=== PATIENT | male | born 1980 | race Caucasian/White ===

== ENCOUNTER 2016-09-11 07:17 | Emergency (ER) | payer OTHER ==
[~2016-09-11 07:17] MED LIST: LORATADINE10 MG PO; VISTARIL25 MG PO
== END 2016-09-11 11:42 ==
LOC: ER1 07:17
DX: S02.2XXB Fracture of nasal bones, initial encounter for open fracture (principal); S01.81XA Laceration without foreign body of other part of head, initial encounter; I10 Essential (primary) hypertension; Z88.6 Allergy status to analgesic agent; F17.200 Nicotine dependence, unspecified, uncomplicated; Y04.0XXA Assault by unarmed brawl or fight, initial encounter; Y93.89 Activity, other specified; Y92.89 Other specified places as the place of occurrence of the external cause; Z79.899 Other long term (current) drug therapy
CPT/HCPCS: 12013; 70450; 70486; 99283

== ENCOUNTER 2020-09-27 09:46 | Emergency (ER) | payer OTHER ==
[2020-09-27 11:38] LABS: HEMOGLOBIN 14.7 gm/dl (14.0-17.5); RED BLOOD COUNT 4.47 M/UL (4.20-5.50); WHITE BLOOD COUNT 22.1 K/UL (4.5-11.0)
[2020-09-27 12:04] LABS: BUN/CREATININE RATIO 24 (0-10)
== END 2020-09-27 20:55 | disposition short-term general hospital (02) ==
LOC: ER1 09:46
PROVIDERS: Nurse Practitioner
DX: K85.90 Acute pancreatitis without necrosis or infection, unspecified (principal); I82.890 Acute embolism and thrombosis of other specified veins; I10 Essential (primary) hypertension; F17.210 Nicotine dependence, cigarettes, uncomplicated; Z20.822 Contact with and (suspected) exposure to COVID-19; Z90.49 Acquired absence of other specified parts of digestive tract
CPT/HCPCS: 80053; 80307; 81001; 83605; 83690; 85025; 93005; 96372; 96374; 96375; 96376; 99285; G0480; J0500; J1170; J1200; J2405; J2765; J7030; Q9967; U0002

== ENCOUNTER 2020-11-25 15:48 | Emergency (ER) | payer OTHER ==
[2020-11-25] MEDS ORDERED: DOXYCYCLINE HY100 M2 PO (17:09)
== END 2020-11-25 17:55 | disposition home or self-care (01) ==
LOC: ER1 15:48
DX: N34.2 Other urethritis (principal); K02.9 Dental caries, unspecified; I10 Essential (primary) hypertension; F17.200 Nicotine dependence, unspecified, uncomplicated; Z88.6 Allergy status to analgesic agent
CPT/HCPCS: 96372; 99283; J0696